=== PATIENT | female | born 1955 | race Caucasian/White ===

== ENCOUNTER 2018-07-12 18:58 | Emergency (ER) | payer OTHER ==
[~2018-07-12] VITALS: Ht 175.3 cm; Wt 130.2 kg
[2018-07-12 19:00] VITALS: BP_SYST 143
--- NOTE | 2018-07-12 19:03 | NUR ---
Patient placed in room 6. 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 Patient is currently A and O x 4. No sign of distress noted. Current VS are 143/84, 98.2, 16, 84 SR, 0/10 pain.
--- NOTE | 2018-07-12 19:05 | NUR ---
PT came to the ED via EMS for a near syncope episode while getting her hair done prior to ED arrival. Reports pt was taking Lexopril 20 mg about an hour and a half prior to going to the salon. Reports she had bilateral upper extremity shaking and was "knocked out for 20 minutes." Denies n/v/d or fever. Denies sob or chest pain. Denies pain. No other complaints/injuries noted. Will cont. to monitor.
--- NOTE | 2018-07-12 19:09 | NUR ---
current bs is 111.
--- NOTE | 2018-07-12 19:56 | NUR ---
ER Dr. Saleh at bedside examining patient.
[2018-07-12] MEDS ORDERED: NACL 0.9% 1,000 ML IV ONE (20:15)
[2018-07-12 20:31] LABS: BASOPHILS # (AUTO) 0.1 K/uL (0.0-0.2); BASOPHILS % (AUTO) 0.8 % (0.0-2.0); EOSINOPHILS # (AUTO) 0.1 K/uL (0.0-0.4); EOSINOPHILS % (AUTO) 1.5 % (0.0-4.0); HEMATOCRIT 41.3 % (36-48); HEMOGLOBIN 14.2 g/dL (12.0-16.0); LYMPHOCYTES # (AUTO) 1.5 K/uL (1.0-5.5); LYMPHOCYTES % (AUTO) 17.6 % (20.5-51.5); MEAN CORPUSCULAR HEMOGLOBIN 31 pg (27-31); MEAN CORPUSCULAR HGB CONC 34 % (32-36); MEAN CORPUSCULAR VOLUME 91 fL (79.0-98.0); MONOCYTES # (AUTO) 0.6 K/uL (0.0-1.0); MONOCYTES % (AUTO) 6.5 % (1.7-9.3); NEUTROPHILS # (AUTO) 6.3 K/uL (1.8-7.7); NEUTROPHILS % (AUTO) 73.6 % (40.0-70.0); PLATELET COUNT (AUTO) 270 K/uL (130-430); RED BLOOD CELL COUNT(AUTO) 4.53 MIL/uL (4.2-6.2); RED CELL DISTRIBUTION WIDTH 13.4 % (9.0-15.0); WHITE BLOOD COUNT (AUTO) 8.5 K/uL (4.8-10.8)
[2018-07-12 20:45] LABS: ANION GAP 9 (5-15); CALCIUM 8.7 mg/dL (8.4-11.0); CHLORIDE 107 mmol/L (98-107); CREATININE 1.14 mg/dL (0.55-1.30); GLUCOSE 111 mg/dL (70-99); POTASSIUM 3.9 mmol/L (3.5-5.1); SODIUM SERUM 141 mmol/L (136-145); UREA NITROGEN, BLOOD 28 mg/dL (8-21)
[2018-07-12 20:47] LABS: GFR AFRICAN AMERICAN 62 mL/min (>90)
[2018-07-12 20:53] LABS: ALANINE AMINOTRANSFERASE 28 U/L (12-78); ALBUMIN 3.1 g/dL (3.4-4.8); ASPARTATE AMINOTRANSFERASE 16 U/L (10-37); TOTAL BILIRUBIN 0.2 mg/dL (0.0-1.0)
[2018-07-12 21:48] LABS: BILIRUBIN,URINE NEGATIVE (NEGATIVE); BLOOD, URINE 2+ (NEGATIVE); CLARITY/URINE HAZY (CLEAR); COLOR,URINE YELLOW (YELLOW); GLUCOSE,URINE NEGATIVE (NEGATIVE); KETONES,URINE TRACE (NEGATIVE); LEUKOCYTE ESTERASE ,URINE TRACE (NEGATIVE); NITRITE, URINE NEGATIVE (NEGATIVE); PROTEIN URINE 2+ (NEGATIVE); UROBILINOGEN,URINE 0.2 (0.2-1.0)
--- NOTE | 2018-07-12 22:06 | NUR ---
Dr. Saleh at bedside speaking to pt about results.
[2018-07-12 22:09] LABS: BACTERIA,URINE FEW /HPF (None Seen); MUCUS,URINE 1+ /LPF (None Seen)
[2018-07-12 22:15] VITALS: BP_SYST 143
--- NOTE | 2018-07-12 22:15 | NUR ---
Patient given written and verbal discharge instructions and verbalizes understanding. ER MD Dr. Saleh discussed with patient the results and treatment provided. Patient in stable condition. ID arm band removed. IV catheter removed intact and dressing applied, no active bleeding. Patient educated on pain management and to follow up with PMD. Pain Scale 0/10. Opportunity for questions provided and answered. Medication side effect fact sheet provided.
== END 2018-07-12 22:15 | disposition home or self-care (01) ==
LOC: SED 18:58
DX: R55 Syncope and collapse (principal); E11.9 Type 2 diabetes mellitus without complications; I10 Essential (primary) hypertension
CPT/HCPCS: 36415; 71045; 80053; 81000; 82962; 84484; 85025; 87086; 93005; 96360; 99284; J7030

== ENCOUNTER 2022-08-17 06:00 | Day surgery (SDC) | payer OTHER ==
[~2022-08-17] VITALS: Ht 177.8 cm; Wt 122.5 kg
[2022-08-17] MEDS ORDERED: LR 1,000 ML IV SCH (08:15)
[2022-08-17] MEDS ORDERED: HYDROmorphone 1 MG/ML INJ. CARTRIDGE IVP PRN ×2 (08:15)
[2022-08-17] MEDS ORDERED: METOCLOPRAMIDE HCL 10 MG/2 ML VIAL IVP PRN (08:15)
[2022-08-17] MEDS ORDERED: MEPERIDINE HCL/PF 25 MG/ML DISP.SYRIN IVP PRN (08:15)
[2022-08-17] MEDS ORDERED: hydrALAZINE HCL 20 MG/ML VIAL IVP PRN (08:15)
[2022-08-17 10:41] VITALS: BP_SYST 110
== END 2022-08-17 10:05 | disposition home or self-care (01) ==
LOC: SDS 06:00
PROVIDERS: ATTEND Internal Medicine
DX: Z12.11 Encounter for screening for malignant neoplasm of colon (principal); D12.4 Benign neoplasm of descending colon; K64.8 Other hemorrhoids; J45.909 Unspecified asthma, uncomplicated; E66.01 Morbid (severe) obesity due to excess calories; I12.9 Hypertensive chronic kidney disease with stage 1 through stage 4 chronic kidney disease, or unspecified chronic kidney disease; N18.9 Chronic kidney disease, unspecified; Z68.39 Body mass index [BMI] 39.0-39.9, adult; Z79.899 Other long term (current) drug therapy
CPT/HCPCS: 45385; 88305; G0378